=== PATIENT | female | born 1935 | race Caucasian/White ===

== ENCOUNTER 2016-11-14 05:32 | Inpatient (IN) | payer OTHER, MEDICAID ==
[~2016-11-14] VITALS: Ht 149.9 cm; Wt 73.3 kg
[~2016-11-14 05:32] MED LIST: ASPI300S PR; HALO1TAB17 PO; LEVE750T3 PO; LISI-646 PO; METF-372 PO; METO-169 PO; MORP1TAB12 PO; NOR10T PO; OXYB5TAB62 PO; QUE25T PO; SENN-68 PO; TEMA30CA PO
[2016-11-14] MEDS ORDERED: SODIUM CHLORIDE 0.9% 1,000 ML IV ONE (07:13)
[2016-11-14] MEDS ORDERED: ONDANSETRON HCL 4 MG/2 ML VIAL IV ONE (07:30)
[2016-11-14] MEDS ORDERED: MORPHINE SULFATE 4 MG/ML SYRG IV ONE (07:30)
[2016-11-14 08:17] LABS: Basophils # (auto) 0.1 uL; Basophils % (auto) 0.7 % (0.0-2.0); Eosinophils # (auto) 0.1 uL; Eosinophils % (auto) 1.5 % (0.0-7.0); Hematocrit 31.3 % (36.0-46.0); Hemoglobin 10.4 g/dL (12.2-16.2); Lymphocytes # (auto) 0.4 uL; Lymphocytes % (auto) 4.4 % (10.0-50.0); Mean Corpuscular Hgb Conc. 33.4 g/dL (32.0-36.0); Mean Corpuscular Volume 92.9 fL (80.0-100.0); Mean Platelet Volume 7.3 fL (7.4-10.4); Monocytes # (auto) 0.6 uL; Monocytes % (auto) 6.3 % (0.0-12.0); Neutrophils # (auto) 8.3 uL; Neutrophils % (auto) 87.1 % (37.0-80.0); Platelet Count (auto) 376 10^3/uL (140-450); Red Cell Distribution Width 18.3 % (11.6-16.0); White Blood Cell 9.5 10^3/uL (4.4-10.8)
[2016-11-14 08:31] LABS: INR 1.05 (0.9-1.15); Partial Thromboplastin Time 28.9 sec (22.64-33.71); Prothrombin Time 11.4 sec (9.37-12.3)
[2016-11-14 08:42] LABS: Albumin 2.9 g/dL (3.4-5.0); Anion Gap 9 (5-15); Calcium 8.2 mg/dL (8.5-10.1); Carbon Dioxide 27 mmol/L (21-32); Chloride 103 mmol/L (98-107); Potassium 4.4 mmol/L (3.5-5.1); Sodium 139 mmol/L (136-145)
[2016-11-14 08:50] LABS: Alkaline Phosphatase 188 U/L (45-117); Aspartate Aminotransferase 16 U/L (15-37); BUN/Creatinine Ratio 12.8; Bilirubin, Total 0.4 mg/dL (0.2-1.0); Blood Urea Nitrogen 14 mg/dL (7-18); GFR African American 62 mL/min; GFR Non-African American 51 mL/min; Glucose 99 mg/dL (74-106); Total Protein 5.5 g/dL (6.4-8.2)
[2016-11-14 09:09] LABS: Temperature: 23.4 C (20.0-25.0)
[2016-11-14] MEDS ORDERED: HYDROcodone-ACET 10/325MG TAB PO PRN (10:45)
[2016-11-14] MEDS ORDERED: LORazepam 2MG/ML-1ML VIAL IV PRN (11:00)
[2016-11-14] MEDS ORDERED: ACETAMINOPHEN 325 MG TAB PO PRN (11:00)
[2016-11-14] MEDS ORDERED: DEXTROSE (50%) 50ML SYRG IV PRN (11:00)
[2016-11-14] MEDS ORDERED: HYDROcodone-ACET 5/325MG TAB PO PRN (11:00)
[2016-11-14] MEDS ORDERED: MORPHINE SULF INJ 2 MG/ML SYRINGE 1ML IV PRN (11:00)
[2016-11-14] MEDS ORDERED: TEMAZEPAM 15 MG CAP PO PRN (11:00)
[2016-11-14] MEDS ORDERED: DOCUSATE SOD 100 MG CAP PO PRN (11:00)
[2016-11-14] MEDS ORDERED: ONDANSETRON HCL 4 MG/2 ML VIAL IV PRN (11:00)
[2016-11-14] MEDS: InsuLIN REG 1unit/0.01ml Soln (100units/ml) SC SCH ×3 (11:30→22:00)
[2016-11-14] MEDS: ZINC SULFATE 220 MG CAP PO SCH (11:41)
[2016-11-14] MEDS: MULTIPLE VITAMIN TAB PO SCH (11:41)
[2016-11-14] MEDS: AMIODARONE HCL 200 MG TAB PO SCH (11:41)
[2016-11-14] MEDS: PANTOPRAZOLE 40 MG TAB PO SCH (11:41)
[2016-11-14] MEDS: LEVETIRACETAM 500 MG TAB PO SCH ×2 (11:42→22:18)
[2016-11-14] MEDS: FUROSEMIDE 20 MG TAB PO SCH (11:42)
[2016-11-14] MEDS: QUEtiapine FUMARATE 25 MG TAB PO SCH ×2 (11:42→22:18)
[2016-11-14] MEDS: ASCORBIC ACID 500 MG TAB PO SCH ×2 (11:42→22:18)
[2016-11-14] MEDS: MORPHINE SULF 15mg ER tab PO SCH ×2 (11:43→22:19)
[2016-11-14] MEDS: ACCU-CHEK COMFORT CURVE STRIP VI SCH ×3 (11:50→22:19)
[2016-11-14 12:02] LABS: Urine Bilirubin Negative (Negative); Urine Blood Negative /uL (Negative); Urine Color Yellow (Yellow); Urine Glucose Normal (Normal); Urine Ketone Negative (Negative); Urine Nitrite Negative (Negative); Urine RBC <1 /hpf (0 - 4); Urine Squamous Epithelial Cell FEW /hpf (<5); Urine Urobilinogen Normal (Negative); Urine WBC Clumps PRESENT /hpf (None Seen); Urine pH 5.5 (5.0-8.0)
[2016-11-14] MEDS: Boost Glucose Control 8 Ounces PO SCH ×3 (12:39→22:00)
[2016-11-14] MEDS: SODIUM CHLOR 0.9% PF (SALINE LOCK) 10ML VIAL IV SCH ×2 (14:28→22:19)
[2016-11-14] MEDS: ALBUTEROL SULF 2.5 MG/0.5ML(0.5%) NEB SOLN NEB SCH ×2 (14:30→18:25)
[2016-11-14] MEDS: IPRATROPIUM BROM 0.5 MG/2.5ML INH SOL NEB SCH ×2 (14:30→18:25)
[2016-11-14] MEDS ORDERED: MORPHINE SULF INJ 2 MG/ML SYRINGE 1ML IV ONE (15:45)
[2016-11-14 20:27] VITALS: BP 124/66
[2016-11-14 20:41] VITALS: BP 105/67
[2016-11-14] MEDS ORDERED: FAMOTIDINE 20 MG TAB PO SCH (22:00)
[2016-11-14] MEDS: SENNA 8.6 MG TAB PO SCH (22:19)
[2016-11-14 23:18] VITALS: BP 105/67
[2016-11-15] VITALS (7 sets, daily range): BP systolic 101–133; BP diastolic 61–74
[2016-11-15] MEDS: Boost Glucose Control 8 Ounces PO SCH ×4 (06:00→22:00)
[2016-11-15] MEDS: ALBUTEROL SULF 2.5 MG/0.5ML(0.5%) NEB SOLN NEB SCH ×3 (06:18→18:40)
[2016-11-15] MEDS: IPRATROPIUM BROM 0.5 MG/2.5ML INH SOL NEB SCH ×3 (06:18→18:40)
[2016-11-15] MEDS: SODIUM CHLOR 0.9% PF (SALINE LOCK) 10ML VIAL IV SCH ×3 (06:30→22:07)
[2016-11-15] MEDS: InsuLIN REG 1unit/0.01ml Soln (100units/ml) SC SCH ×4 (06:30→22:00)
[2016-11-15] MEDS: ACCU-CHEK COMFORT CURVE STRIP VI SCH ×4 (06:30→22:08)
[2016-11-15 07:01] LABS: Basophils # (auto) 0.1 uL; Basophils % (auto) 0.7 % (0.0-2.0); Eosinophils # (auto) 0.2 uL; Eosinophils % (auto) 2.7 % (0.0-7.0); Hematocrit 30.3 % (36.0-46.0); Lymphocytes # (auto) 0.4 uL; Mean Corpuscular Hgb Conc. 32.9 g/dL (32.0-36.0); Mean Platelet Volume 7.8 fL (7.4-10.4); Monocytes # (auto) 0.6 uL; Neutrophils # (auto) 6.2 uL; Neutrophils % (auto) 82.6 % (37.0-80.0); Platelet Count (auto) 343 10^3/uL (140-450); Red Cell Distribution Width 18.8 % (11.6-16.0); White Blood Cell 7.5 10^3/uL (4.4-10.8)
[2016-11-15 07:28] LABS: Albumin 2.7 g/dL (3.4-5.0); BUN/Creatinine Ratio 13.3; Bilirubin, Total 0.4 mg/dL (0.2-1.0); Calcium 8.1 mg/dL (8.5-10.1); Potassium 4.1 mmol/L (3.5-5.1); Total Protein 5.1 g/dL (6.4-8.2)
[2016-11-15] MEDS: MORPHINE SULF 15mg ER tab PO SCH ×2 (09:54→22:08)
[2016-11-15] MEDS: MULTIPLE VITAMIN TAB PO SCH (09:54)
[2016-11-15] MEDS: QUEtiapine FUMARATE 25 MG TAB PO SCH ×2 (09:54→22:08)
[2016-11-15] MEDS: PANTOPRAZOLE 40 MG TAB PO SCH (09:54)
[2016-11-15] MEDS: ASCORBIC ACID 500 MG TAB PO SCH ×2 (09:54→22:08)
[2016-11-15] MEDS: FUROSEMIDE 20 MG TAB PO SCH (09:54)
[2016-11-15] MEDS: ZINC SULFATE 220 MG CAP PO SCH (09:54)
[2016-11-15] MEDS: LEVETIRACETAM 500 MG TAB PO SCH ×2 (09:54→22:08)
[2016-11-15] MEDS: AMIODARONE HCL 200 MG TAB PO SCH (09:55)
[2016-11-15] MEDS ORDERED: PIPERACILLIN-TAZOB 3.375GM 100 ML IV ONE (15:30)
[2016-11-15] MEDS ORDERED: QUEtiapine FUMARATE 25 MG TAB PO ONE (15:30)
[2016-11-15] MEDS ORDERED: PIPERACILLIN-TAZOB 3.375GM 100 ML IV SCH (18:00)
[2016-11-15] MEDS: PIPERACILLIN-TAZOB 3.375GM 100 ML IV SCH ×2 (18:32→23:57)
[2016-11-15] MEDS: SENNA 8.6 MG TAB PO SCH (22:07)
[2016-11-16 04:59] VITALS: BP 124/67
[2016-11-16] MEDS: SODIUM CHLOR 0.9% PF (SALINE LOCK) 10ML VIAL IV SCH ×2 (06:15→14:00)
[2016-11-16] MEDS: PIPERACILLIN-TAZOB 3.375GM 100 ML IV SCH ×2 (06:16→12:25)
[2016-11-16] MEDS: ACCU-CHEK COMFORT CURVE STRIP VI SCH ×3 (06:16→17:14)
[2016-11-16] MEDS: InsuLIN REG 1unit/0.01ml Soln (100units/ml) SC SCH ×3 (06:16→17:00)
[2016-11-16] MEDS: Boost Glucose Control 8 Ounces PO SCH ×2 (06:16→12:24)
[2016-11-16] MEDS: IPRATROPIUM BROM 0.5 MG/2.5ML INH SOL NEB SCH ×3 (06:26→12:26)
[2016-11-16] MEDS: ALBUTEROL SULF 2.5 MG/0.5ML(0.5%) NEB SOLN NEB SCH ×3 (06:26→12:26)
[2016-11-16 07:02] LABS: Basophils # (auto) 0.1 uL; DEFINITIVE VIEW TRANSMISSION; Eosinophils # (auto) 0.2 uL; Eosinophils % (auto) 3.4 % (0.0-7.0); Hemoglobin 10.2 g/dL (12.2-16.2); Lymphocytes # (auto) 0.4 uL; Lymphocytes % (auto) 6.3 % (10.0-50.0); Mean Corpuscular Hemoglobin 30.9 pg (28.0-32.0); Mean Corpuscular Hgb Conc. 32.8 g/dL (32.0-36.0); Mean Corpuscular Volume 94.1 fL (80.0-100.0); Mean Platelet Volume 7.6 fL (7.4-10.4); Monocytes # (auto) 0.6 uL; Monocytes % (auto) 8.5 % (0.0-12.0); Neutrophils # (auto) 5.6 uL; Neutrophils % (auto) 80.8 % (37.0-80.0); Platelet Count (auto) 361 10^3/uL (140-450)
[2016-11-16 08:00] VITALS: BP 115/64
[2016-11-16] MEDS: ASCORBIC ACID 500 MG TAB PO SCH (09:35)
[2016-11-16] MEDS: AMIODARONE HCL 200 MG TAB PO SCH (09:35)
[2016-11-16] MEDS: MORPHINE SULF 15mg ER tab PO SCH (09:35)
[2016-11-16] MEDS: QUEtiapine FUMARATE 25 MG TAB PO SCH (09:36)
[2016-11-16] MEDS: PANTOPRAZOLE 40 MG TAB PO SCH (09:36)
[2016-11-16] MEDS: LEVETIRACETAM 500 MG TAB PO SCH (09:36)
[2016-11-16] MEDS: ZINC SULFATE 220 MG CAP PO SCH (09:36)
[2016-11-16] MEDS: MULTIPLE VITAMIN TAB PO SCH (09:36)
[2016-11-16] MEDS: FUROSEMIDE 20 MG TAB PO SCH (09:36)
[2016-11-16 09:38] VITALS: BP 115/64
[2016-11-16] MEDS ORDERED: NITR-52 PO (10:00)
[2016-11-16 12:10] VITALS: BP 115/64
[2016-11-16 13:00] VITALS: BP 104/64
[2016-11-16 16:52] VITALS: BP 91/61
== END 2016-11-16 17:59 | disposition hospice, home (50) | DRG 689 ==
LOC: EDBD 05:32 → EDUNIT# 05:32 → ER 05:32 → OVERFLOW 05:33 → EAST 20:33
PROVIDERS: ADMIT Internal Medicine; ATTEND Hospitalist
DX: N39.0 Urinary tract infection, site not specified (principal); E43 Unspecified severe protein-calorie malnutrition; G92 Toxic encephalopathy; I13.0 Hypertensive heart and chronic kidney disease with heart failure and stage 1 through stage 4 chronic kidney disease, or unspecified chronic kidney disease; I50.40 Unspecified combined systolic (congestive) and diastolic (congestive) heart failure; I48.92 Unspecified atrial flutter; S00.11XA Contusion of right eyelid and periocular area, initial encounter; D63.8 Anemia in other chronic diseases classified elsewhere; E11.21 Type 2 diabetes mellitus with diabetic nephropathy; E11.22 Type 2 diabetes mellitus with diabetic chronic kidney disease; E78.5 Hyperlipidemia, unspecified; G40.909 Epilepsy, unspecified, not intractable, without status epilepticus; I48.91 Unspecified atrial fibrillation; N18.3 Chronic kidney disease, stage 3 (moderate); S80.01XA Contusion of right knee, initial encounter; B96.20 Unspecified Escherichia coli [E. coli] as the cause of diseases classified elsewhere; Z51.5 Encounter for palliative care; I25.10 Atherosclerotic heart disease of native coronary artery without angina pectoris; W06.XXXA Fall from bed, initial encounter; Z82.3 Family history of stroke; Z82.49 Family history of ischemic heart disease and other diseases of the circulatory system; Z86.73 Personal history of transient ischemic attack (TIA), and cerebral infarction without residual deficits; Z79.899 Other long term (current) drug therapy; Y93.89 Activity, other specified; Y92.89 Other specified places as the place of occurrence of the external cause; Y99.8 Other external cause status; Z68.32 Body mass index [BMI] 32.0-32.9, adult; I27.2 Other secondary pulmonary hypertension; Z16.12 Extended spectrum beta lactamase (ESBL) resistance; F03.90 Unspecified dementia, unspecified severity, without behavioral disturbance, psychotic disturbance, mood disturbance, and anxiety
CPT/HCPCS: 36415; 51702; 70450; 71010; 73502; 73562; 73590; 80053; 81001; 82962; 83036; 83880; 84443; 84484; 85025; 85610; 85730; 87086; 93306; 94640; 96361; 96374; 96375; 96376; 97110; 97116; 97530; J2405; J2543

== ENCOUNTER 2016-12-18 17:36 | Emergency (ER) | payer OTHER, MEDICAID ==
[~2016-12-18] VITALS: Ht 157.5 cm; Wt 49.9 kg
[~2016-12-18 17:36] MED LIST changes: +NITR-52 PO
[2016-12-18 19:51] LABS: Basophils # (auto) 0 uL; CONDITION Y; Eosinophils # (auto) 0 uL; Eosinophils % (auto) 0.1 % (0.0-7.0); Hematocrit 41.7 % (36.0-46.0); Hemoglobin 13.5 g/dL (12.2-16.2); Lymphocytes # (auto) 0.3 uL; Mean Corpuscular Hemoglobin 28.9 pg (28.0-32.0); Mean Corpuscular Hgb Conc. 32.4 g/dL (32.0-36.0); Mean Corpuscular Volume 89.2 fL (80.0-100.0); Mean Platelet Volume 8.6 fL (7.4-10.4); Monocytes # (auto) 0.7 uL; Monocytes % (auto) 4.8 % (0.0-12.0); Neutrophils # (auto) 12.7 uL; Neutrophils % (auto) 93.1 % (37.0-80.0); Platelet Count (auto) 346 10^3/uL (140-450); Red Cell Distribution Width 17.4 % (11.6-16.0); White Blood Cell 13.6 10^3/uL (4.4-10.8)
[2016-12-18 20:06] LABS: Albumin 3.7 g/dL (3.4-5.0); BUN/Creatinine Ratio 13.4; Bilirubin, Total 0.8 mg/dL (0.2-1.0); Calcium 9.1 mg/dL (8.5-10.1); Total Protein 6.8 g/dL (6.4-8.2)
[2016-12-18 20:39] LABS: Urine Bilirubin Negative (Negative); Urine Blood Negative /uL (Negative); Urine Color Yellow (Yellow); Urine Glucose Normal (Normal); Urine Ketone Negative (Negative); Urine Nitrite Negative (Negative); Urine RBC 1 /hpf (0 - 4); Urine Squamous Epithelial Cell FEW /hpf (<5); Urine Urobilinogen Normal (Negative)
[2016-12-18 23:21] VITALS: BP 182/74
== END 2016-12-18 23:20 | disposition home or self-care (01) ==
LOC: EDBD 17:36 → EDUNIT# 17:36 → ER 17:36
DX: T83.018A Breakdown (mechanical) of other urinary catheter, initial encounter (principal); N39.0 Urinary tract infection, site not specified; I25.10 Atherosclerotic heart disease of native coronary artery without angina pectoris; I10 Essential (primary) hypertension; E11.9 Type 2 diabetes mellitus without complications; I48.91 Unspecified atrial fibrillation; E78.5 Hyperlipidemia, unspecified; Z79.82 Long term (current) use of aspirin; Z86.73 Personal history of transient ischemic attack (TIA), and cerebral infarction without residual deficits; Z79.899 Other long term (current) drug therapy
CPT/HCPCS: 36415; 51702; 80053; 81001; 85025